=== PATIENT | female | born 1955 | race Caucasian/White ===

== ENCOUNTER 2017-04-09 03:42 | Emergency (ER) | payer BC ==
[2017-04-09] MEDS ORDERED: HYDR-971 PO (04:48)
[2017-04-09] MEDS ORDERED: KETOROLAC 15 MG/ML VIAL. IV ONE (05:00)
[2017-04-09] MEDS ORDERED: HYDROmorphone PF 1 MG/ML DISP.SYRIN IM ONE (05:00)
[2017-04-09 05:06] VITALS: BP 106/60
--- NOTE | 2017-04-09 05:09 | PHYS DOC ---
Past History Past Medical History: Alcoholism Past Surgical History: Appendectomy, Hysterectomy, Tonsillectomy Alcohol Use: Heavy Drug Use: None Adult General Chief Complaint Chief Complaint: LOWER EXT PAIN HPI HPI Patient is a 61-year-old female with history significant for osteoporosis, status post appendectomy and bilateral tubal ligation, presents to the ER today secondary to a fall earlier this evening. Patient reports that her dogs in the house that she tripped over the leash and she's been having pain to her left lower extremity around her catheter ever since. Patient denies any other injuries. Patient has any head trauma. Patient has a loss of consciousness. Patient has a nausea vomiting diarrhea cough cold Raynaud's. Patient reports she has been nonweightbearing secondary to pain since. Patient reports that she was drinking some alcohol prior to this occurring. Patient's ER workup is been significant for an x-ray that was obtained which revealed a comminuted midshaft fracture of her tibia. This was non-articular. Did not go through the tibial plateau. Did not involve the ankle. Patient's physical exam was significant for tenderness to palpation to her left calf. Patient soft tissue swelling. Patient has no pallor, pulselessness, paresthesias to her foot. Her Does not appear to be swollen tight. No suspicion for compartment syndrome. Patient has good pulses distally. DPPT pulses both intact and equal and bounding bilaterally. Assessment and plan 61-year-old female who presents to the ER today with what appears to be a comminuted fracture of her left mid shaft of her tibia. Patient has been placed in a posterior splint as well as a knee immobilizer for immobilization. I have spoken to Dr. Carrasco and he is assisted with reviewing the x-rays. He is in agreement with this plan. We have precautions patient regarding compartment syndrome and returning to the ER. Patient will follow-up with Dr. Carrasco. He is asked us to have her call in the morning and he will assist in getting her into see him as soon as possible. Patient has received Dilaudid, Toradol, Zofran in the ED with good analgesia. Patient be sent home with Lortab to assist her with her pain. Review of Systems Review of Systems Constitutional: Denies fever or chills [] Eyes: Denies change in visual acuity, redness, or eye pain [] HENT: Denies nasal congestion or sore throat [] All other review systems are negative except as.documented in the history of present illness Current Medications Current Medications Current Medications Medications (Trade) Dose Ordered Sig/Berna Start Time Stop Time Status Last Admin Dose Admin Hydromorphone HCl (Dilaudid) 0.5 mg 1X ONCE 04/09/17 05:00 04/09/17 05:01 Ketorolac Tromethamine (Toradol) 15 mg 1X ONCE 04/09/17 05:00 04/09/17 05:01 Allergies Allergies Allergies Coded Allergies Type Severity Reaction Last Updated Verified Penicillins Allergy Intermediate 04/09/17 Yes Sulfa (Sulfonamide Antibiotics) Allergy Intermediate 04/09/17 Yes acetaminophen Allergy Intermediate 04/09/17 Yes codeine Allergy Intermediate 04/09/17 Yes meperidine Allergy Intermediate 04/09/17 Yes propoxyphene Allergy Intermediate 04/09/17 Yes Physical Exam Physical Exam Constitutional: Well developed, well nourished, no acute distress, non-toxic appearance. HENT: Normocephalic, atraumatic, Eyes: EOMI, conjunctiva normal, no discharge. Neck: Normal range of motion, no tenderness, supple, no stridor. Cardiovascular:Heart rate regular rhythm, Lungs & Thorax: Bilateral breath sounds clear to auscultation Abdomen: Bowel sounds normal, soft, no tenderness, no masses, no pulsatile masses. Skin: Warm, dry, no erythema, no rash. Back: No tenderness, no CVA tenderness. Extremities: See above. Neurologic: Alert and oriented X 3, normal motor function, normal sensory function, no focal deficits noted. Psychologic: Affect normal, judgement normal, mood normal. EKG EKG [] Radiology/Procedures Radiology/Procedures [] Course & Med Decision Making Course & Med Decision Making Pertinent Labs and Imaging studies reviewed. (See chart for details) [] Dragon Disclaimer Dragon Disclaimer This chart was dictated in whole or in part using Voice Recognition software in a busy, high-work load, and often noisy Emergency Department environment. It may contain unintended and wholly unrecognized errors or omissions. Departure Departure: Impression: Primary Impression: Nondisplaced comminuted fracture of shaft of left tibia Disposition: HOME, SELF-CARE Condition: IMPROVED Referrals: PCP,JALEN (PCP) LILY CARRASCO MD Patient Instructions: Cast or Splint Care, Compartment Syndrome-Brief, Knee Immobilization, Tibial Fracture, Adult Additional Instructions: elevate your lower extremities whenever resting. Ice as much as possible. Scripts Hydrocodone Bit/Acetaminophen (NORCO 5-325 TABLET) 1 Each Tablet 1 TAB PO PRN Q6HRS Y for PAIN, #30 TAB 0 Refills Prov: RUTH GAITAN MD 04/09/17 Problem Qualifiers Primary Impression: Nondisplaced comminuted fracture of shaft of left tibia Encounter type: initial encounter Fracture type: closed Qualified Codes: S82.255A - Nondisplaced comminuted fracture of shaft of left tibia, initial encounter for closed fracture RUTH GAITAN MD Apr 09, 2017 05:09
--- NOTE | 2017-04-09 08:05 | RAD ---
Left tibia and fibula radiograph 04/09/2017 at 0401 hours Indication: Severe pain from fall Comparison: None available Technique: 4 views of the left tibia and fibula are provided. Findings: There is a comminuted fracture of the mid left tibial diaphysis with obliquely oriented fracture fragments in a spiral distribution. There is mild displacement. No significant angulation. No fracture is noted involving the fibula. No disruption of the knee or ankle joint. Impression: Comminuted spiral fracture of the proximal left tibial diaphysis with mild displacement and no significant angulation.
== END 2017-04-09 05:21 | disposition home or self-care (01) ==
LOC: ER 03:42
DX: S82.255A Nondisplaced comminuted fracture of shaft of left tibia, initial encounter for closed fracture (principal); R11.2 Nausea with vomiting, unspecified; R19.7 Diarrhea, unspecified; F10.20 Alcohol dependence, uncomplicated; Z88.0 Allergy status to penicillin; Z88.2 Allergy status to sulfonamides; Z88.6 Allergy status to analgesic agent; Z88.5 Allergy status to narcotic agent; Z88.8 Allergy status to other drugs, medicaments and biological substances; W18.09XA Striking against other object with subsequent fall, initial encounter; Y93.89 Activity, other specified; Y92.89 Other specified places as the place of occurrence of the external cause; Y99.8 Other external cause status
CPT/HCPCS: 29505; 73590; 96372; 96374; 99284; J1170; J1885

== ENCOUNTER → 2021-09-10 | Outpatient (CLI) | payer BC ==
[~2021-09-10] MED LIST: HYDR-3165 PO
[2021-09-10 14:36] LABS: BASO # 0.1 x10^3/uL (0.0-0.2); BASO % 1 % (0-3); EOS # 0.2 x10^3/uL (0.0-0.7); EOS % 3 % (0-3); HEMATOCRIT 34.3 % (36.0-47.0); HEMOGLOBIN 11.3 g/dL (12.0-15.5); LYMPH # 1.1 x10^3/uL (1.0-4.8); LYMPH % 16 % (24-48); MEAN CORPUSCULAR HEMOGLOBIN 30 pg (25-35); MEAN CORPUSCULAR HGB CONC 33 g/dL (31-37); MEAN CORPUSCULAR VOLUME 91 fL (79-100); MONO # 0.4 x10^3/uL (0.0-1.1); MONO % 6 % (0-9); NEUT # 5.3 x10^3uL (1.8-7.7); NEUT % 74 % (31-73); PLATELET COUNT 400 x10^3/uL (140-400); RED BLOOD COUNT 3.77 x10^6/uL (3.50-5.40); WHITE BLOOD COUNT 7.1 x10^3/uL (4.0-11.0)
[2021-09-10 14:47] LABS: C REACTIVE PROTEIN 8.2 mg/L (0-3.3); CREATININE 0.4 mg/dL (0.6-1.0); GFR 161.2
[2021-09-10 15:58] LABS: SEDIMENTATION RATE 23 (0-25)
== END ==
LOC: SPEC 13:35
PROVIDERS: ATTEND Internal Medicine Infectious Disease
DX: Z45.2 Encounter for adjustment and management of vascular access device (principal)
CPT/HCPCS: 36415; 82550; 82565; 84520; 85025; 85651; 86140

== ENCOUNTER → 2021-09-16 | Outpatient (CLI) | payer BC ==
[2021-09-16 11:02] LABS: C REACTIVE PROTEIN 3.4 mg/L (0-3.3); CREATININE 0.3 mg/dL (0.6-1.0); GFR 224.7
[2021-09-16 11:27] LABS: BASO # 0.1 x10^3/uL (0.0-0.2); BASO % 2 % (0-3); EOS # 0.1 x10^3/uL (0.0-0.7); EOS % 1 % (0-3); HEMATOCRIT 31.4 % (36.0-47.0); HEMOGLOBIN 10.2 g/dL (12.0-15.5); LYMPH % 16 % (24-48); MEAN CORPUSCULAR HEMOGLOBIN 30 pg (25-35); MEAN CORPUSCULAR HGB CONC 32 g/dL (31-37); MEAN CORPUSCULAR VOLUME 92 fL (79-100); MONO # 0.4 x10^3/uL (0.0-1.1); MONO % 6 % (0-9); NEUT # 4.5 x10^3uL (1.8-7.7); NEUT % 74 % (31-73); PLATELET COUNT 362 x10^3/uL (140-400); RED BLOOD COUNT 3.41 x10^6/uL (3.50-5.40); RED CELL DISTRIBUTION WIDTH 14.4 % (11.5-14.5); WHITE BLOOD COUNT 6.1 x10^3/uL (4.0-11.0)
[2021-09-16 12:47] LABS: SEDIMENTATION RATE 13 (0-25)
== END ==
LOC: SPEC 09:54
PROVIDERS: ATTEND Internal Medicine Infectious Disease
DX: Z45.2 Encounter for adjustment and management of vascular access device (principal)
CPT/HCPCS: 36415; 82550; 82565; 84520; 85025; 85651; 86140

== ENCOUNTER 2021-09-23 13:48 | Emergency (ER) | payer BC ==
[~2021-09-23] VITALS: Ht 170.2 cm; Wt 39.0 kg
[2021-09-23] MEDS ORDERED: IOHEXOL 350 MG/ML 100 ML VIAL. IV ONE (14:45)
[2021-09-23] MEDS ORDERED: IV NORMAL SALINE 1,000ML 1,000 ML IV SCH (14:45)
[2021-09-23] MEDS ORDERED: CONTRAST GIVEN. MC PRN (15:00)
[2021-09-23 15:15] LABS: BASO # 0.1 x10^3/uL (0.0-0.2); BASO % 1 % (0-3); EOS # 0.2 x10^3/uL (0.0-0.7); EOS % 2 % (0-3); HEMATOCRIT 35.4 % (36.0-47.0); HEMOGLOBIN 11.7 g/dL (12.0-15.5); LYMPH # 0.6 x10^3/uL (1.0-4.8); LYMPH % 6 % (24-48); MEAN CORPUSCULAR HEMOGLOBIN 30 pg (25-35); MEAN CORPUSCULAR HGB CONC 33 g/dL (31-37); MEAN CORPUSCULAR VOLUME 89 fL (79-100); MONO # 0.9 x10^3/uL (0.0-1.1); MONO % 8 % (0-9); NEUT # 8.7 x10^3uL (1.8-7.7); NEUT % 83 % (31-73); PLATELET COUNT 383 x10^3/uL (140-400); RED BLOOD COUNT 3.95 x10^6/uL (3.50-5.40); RED CELL DISTRIBUTION WIDTH 14.1 % (11.5-14.5); WHITE BLOOD COUNT 10.5 x10^3/uL (4.0-11.0)
[2021-09-23 15:28] LABS: CALCIUM 9.2 mg/dL (8.5-10.1); CREATININE 0.3 mg/dL (0.6-1.0); GFR 224.7
[2021-09-23 15:46] LABS: ALBUMIN 3.5 g/dL (3.4-5.0); ALBUMIN/GLOBULIN RATIO 0.9 (1.0-1.7); MAGNESIUM 1.8 mg/dL (1.8-2.4); TOTAL BILIRUBIN 0.3 mg/dL (0.2-1.0); TOTAL PROTEIN 7.2 g/dL (6.4-8.2)
--- NOTE | 2021-09-23 15:47 | PHYS DOC ---
Past History Past Medical History: Alcoholism, COPD Past Surgical History: Appendectomy, Hysterectomy, Tonsillectomy Smoking: Cigarettes, Less than 1pk/day Alcohol Use: Heavy Drug Use: None General Adult EDM: Chief Complaint: SHORTNESS OF BREATH HPI: HPI: 65-year-old female presents with report of dyspnea with exertion and low oxygen at home. Patient with history of home health nursing staff evaluating patient secondary to infected left elbow status post surgical treatment for which she is currently being evaluated and gets IV antibiotic therapy. Home health aide noted patient's O2 sats down into 80%'s and that her heart rate was in the 120s. Home health nurse advised patient to present to the ER for further evaluation. Patient denies any leg swelling or calf tenderness. Patient denies history of DVT/PE. Patient does have a history of COPD and reports she is a 1 pack-a-day smoker which is considerably down from her prior usage. Patient denies any fever or chills. Denies known trauma. Denies known exposure to COVID-19. Review of Systems: Review of Systems: Constitutional: Denies fever or chills Eyes: Denies redness or eye pain HENT: Denies nasal congestion or sore throat Respiratory: Denies cough; reports shortness of breath and dyspnea with exertion Cardiovascular: Denies chest pain; reports palpitations GI: Denies abdominal pain, nausea, or vomiting : Denies dysuria or hematuria Musculoskeletal: Denies back pain or joint pain Integument: Denies rash or skin lesions Neurologic: Denies headache, focal weakness or sensory changes Complete systems were reviewed and found to be within normal limits, except as documented in this note. Current Medications: Current Meds: Current Medications Medications (Trade) Dose Ordered Sig/Berna Start Time Stop Time Status Last Admin Dose Admin Info (Do NOT chart on this entry -- for MONITORING) 1 each PRN DAILY PRN 09/23/21 15:00 09/25/21 14:59 Iohexol (Omnipaque 350 Mg/ml) 100 ml 1X ONCE 09/23/21 14:45 09/23/21 14:47 DC 09/23/21 15:27 100 ML Sodium Chloride 1,000 ml @ 1,000 mls/hr Q1H 09/23/21 14:45 09/23/21 15:44 DC 09/23/21 15:37 1,000 MLS/HR Allergies: Allergies: Allergies Coded Allergies Type Severity Reaction Last Updated Verified Penicillins Allergy Intermediate 04/09/17 Yes Sulfa (Sulfonamide Antibiotics) Allergy Intermediate 04/09/17 Yes codeine Allergy Intermediate 04/09/17 Yes meperidine Allergy Intermediate 04/09/17 Yes propoxyphene Allergy Intermediate 04/09/17 Yes Physical Exam: PE: Constitutional: Well developed, thin, anxious, no acute distress, non-toxic appearance HENT: Normocephalic, atraumatic Eyes: PERRL, EOMI, conjunctiva normal, no discharge, no nystagmus Neck: Normal range of motion, no tenderness, supple Lungs & Thorax: No respiratory distress, lungs clear to auscultation bilaterally, no significant wheezing/Rales/rhonchi, equal chest rise and fall Cardiovascular: Tachycardia, normal heart sounds Abdomen: Soft, no tenderness Skin: Warm, dry, no erythema, no rash Extremities: No tenderness, ROM intact, no edema Neurologic: Alert and oriented X 3, normal motor function, normal sensory function, no focal deficits noted Psychologic: Affect anxious, judgment normal Current Patient Data: Labs: Laboratory Tests Test 09/23/21 14:58 White Blood Count 10.5 x10^3/uL (4.0-11.0) Red Blood Count 3.95 x10^6/uL (3.50-5.40) Hemoglobin 11.7 g/dL (12.0-15.5) L Hematocrit 35.4 % (36.0-47.0) L Mean Corpuscular Volume 89 fL (79-100) Mean Corpuscular Hemoglobin 30 pg (25-35) Mean Corpuscular Hemoglobin Concent 33 g/dL (31-37) Red Cell Distribution Width 14.1 % (11.5-14.5) Platelet Count 383 x10^3/uL (140-400) Neutrophils (%) (Auto) 83 % (31-73) H Lymphocytes (%) (Auto) 6 % (24-48) L Monocytes (%) (Auto) 8 % (0-9) Eosinophils (%) (Auto) 2 % (0-3) Basophils (%) (Auto) 1 % (0-3) Neutrophils # (Auto) 8.7 x10^3uL (1.8-7.7) H Lymphocytes # (Auto) 0.6 x10^3/uL (1.0-4.8) L Monocytes # (Auto) 0.9 x10^3/uL (0.0-1.1) Eosinophils # (Auto) 0.2 x10^3/uL (0.0-0.7) Basophils # (Auto) 0.1 x10^3/uL (0.0-0.2) Sodium Level 133 mmol/L (136-145) L Potassium Level 4.0 mmol/L (3.5-5.1) Chloride Level 94 mmol/L (98-107) L Carbon Dioxide Level 28 mmol/L (21-32) Anion Gap 11 (6-14) Blood Urea Nitrogen 5 mg/dL (7-20) L Creatinine 0.3 mg/dL (0.6-1.0) L Estimated GFR (Cockcroft-Gault) 224.7 BUN/Creatinine Ratio 17 (6-20) Glucose Level 101 mg/dL (70-99) H Lactic Acid Level 0.8 mmol/L (0.4-2.0) Calcium Level 9.2 mg/dL (8.5-10.1) Magnesium Level Pending Total Bilirubin Pending Aspartate Amino Transferase (AST) Pending Alanine Aminotransferase (ALT) Pending Alkaline Phosphatase Pending Creatine Kinase Pending Creatine Kinase MB (Mass) Pending Creatine Kinase MB Relative Index Pending Troponin I High Sensitivity 6 ng/L (4-50) ND-Mqh-F-Type Natriuretic Peptide Pending Total Protein Pending Albumin Pending Albumin/Globulin Ratio Pending Lipase Pending Vital Signs: Vital Signs Date Time Temp Pulse Resp B/P (MAP) Pulse Ox O2 Delivery O2 Flow Rate FiO2 09/23/21 14:42 98.2 122 20 169/110 (129) 93 EKG: EKG: @1436 Sinus tachycardia at 123bpm, NO ST elevation, QRS 70ms, QT/QTc 310/449ms Radiology/Procedures: Radiology/Procedures: PROCEDURE: CT ANGIOGRAPHY CHEST Study: CT CHEST WITH CONTRAST - PULMONARY ANGIOGRAM History: Dyspnea, hypoxia, tachycardia Comparison: None Technique: Helical CT of the chest performed after the administration of intravenous contrast and timed for angiographic evaluation of the pulmonary arteries per PE protocol. Coronal and sagittal 3D MIP reformations were obtained. One or more of the following individualized dose reduction techniques were utilized for this examination: 1. Automated exposure control 2. Adjustment of the mA and/or kV according to patient size 3. Use of iterative reconstruction technique. Findings: Pulmonary Arteries: Contrast bolus is adequate. There is no acute pulmonary embolism. Heart/Systemic Vasculature: The heart is normal in size. No pericardial effusion. The thoracic aorta is normal in caliber. Mediastinum: No mediastinal or hilar lymphadenopathy. Lungs: There is moderate centrilobular emphysema. Mild pleural-parenchymal scarring at the lung apices. Mild airway wall thickening. Mild scattered mucous plugging in the right lower lobe airways. Mild thickening along the left major fissure, nonspecific. No pleural effusion. Neck/Axilla/Body Wall: No axillary lymphadenopathy. The visualized portion of the thyroid gland is normal Upper Abdomen: Unremarkable. Bones: There is no acute osseous abnormality. IMPRESSION: 1. No acute pulmonary embolism. 2. Moderate emphysema. 3. Mild scattered mucous plugging in the right lower lobe airways. Electronically signed by: Marcelina Plascencia MD (09/23/2021 3:50 PM) [id number] Heart Score: C/O Chest Pain: N/A Course & Med Decision Making: Course & Med Decision Making Pertinent Labs and Imaging studies reviewed. (See chart for details) Patient presents with report of dyspnea with exertion and low O2 at home. Patient also noted to have elevated heart rate. Patient requiring supplemental oxygen administration upon arrival as patient's O2 sat down to 89% on room air. Improved with supplemental O2. EKG notes sinus tachycardia. Labs obtained and posted to chart. CTA chest obtained without signs of acute PE. Signs of br onchitis appreciated. Empiric steroid initiated. Patient continued to be tachycardic and hypoxic requiring supplemental O2. Pat ient requiring admission for further evaluation and treatment. Rapid influenza and COVID-19 negative. Cannot fully exclude COVID-19. COVID-19 PCR pending. Patient reports she does not want to be admitted and elects to be discharged home AGAINST MEDICAL ADVICE. Patient advised risks of leaving AGAINST MEDICAL ADVICE including permanent disability and or . Patient and spouse ac knowledge understanding and are in agreement with acceptance of these risks. COVID-19 CRITERIA: The patient was evaluated during the global COVID-19 pandemic, and that diagnosis was suspected/considered upon their initial presentation. Their evaluation, treatment and testing was consistent with current guidelines for patients who present with complaints or symptoms that may be related to COVID-19. Ava Disclaimer: Ava Disclaimer: This electronic medical record was generated, in whole or in part, using a voice recognition dictation system. Departure Departure: Impression: Primary Impression: Tachycardia Additional Impressions: Hypoxia Left against medical advice Disposition: 07 LEFT AGAINST MEDICAL ADVICE Condition: GUARDED Referrals: KEVIN GUTIERREZ MD (PCP) Patient Instructions: Chronic Obstructive Pulmonary Disease Exacerbation, [id number], Discharge Against Medical Advice, Nonspecific Tachycardia Additional Instructions: You have elected to leave AGAINST MEDICAL ADVICE. As such you are taking upon you the risks of doing so including permanent disability and or . COVID-19 Assessment COVID-19 Patient Risks: Age 65 or older: No Sign of co-morbidity: Yes Exp to person + for COVID: No Exp to PUI: No Travel from affected area: No Lower respiratory symptoms: Yes Fever: No Other: Yes PPE Use: Full PPE with N95 mask or PAPR: Yes Critical Care Time Critical care time was 30 minutes which includes time at bedside, spent in discussion of patient's care with specialists and/or family members, with int erpretation of laboratory and/or radiological studies and is exclusive of procedures. ELIEZER FU DO Sep 23, 2021 15:47
[2021-09-23 15:50] LABS: INFLUENZA A PATIENT NEGATIVE (NEGATIVE); INFLUENZA B PATIENT NEGATIVE (NEGATIVE)
--- NOTE | 2021-09-23 15:52 | RAD ---
Study: CT CHEST WITH CONTRAST - PULMONARY ANGIOGRAM History: Dyspnea, hypoxia, tachycardia Comparison: None Technique: Helical CT of the chest performed after the administration of intravenous contrast and ti med for angiographic evaluation of the pulmonary arteries per PE protocol. Coronal and sagittal 3D OR P reformations were obtained. One or more of the following individualized dose reduction techniques were utilized for this examinat ion: 1. Automated exposure control 2. Adjustment of the mA and/or kV according to patient size 3. Use of iterative reconstruction technique. Findings: Pulmonary Arteries: Contrast bolus is adequate. There is no acute pulmonary embolism. Heart/Systemic Vasculature: The heart is normal in size. No pericardial effusion. The thoracic aorta is normal in caliber. Mediastinum: No mediastinal or hilar lymphadenopathy. Lungs: There is moderate centrilobular emphysema. Mild pleural-parenchymal scarring at the lung apice s. Mild airway wall thickening. Mild scattered mucous plugging in the right lower lobe airways. Mild thickening along the left major fissure, nonspecific. No pleural effusion. Neck/Axilla/Body Wall: No axillary lymphadenopathy. The visualized portion of the thyroid gland is no rmal Upper Abdomen: Unremarkable. Bones: There is no acute osseous abnormality. IMPRESSION: 1. No acute pulmonary embolism. 2. Moderate emphysema. 3. Mild scattered mucous plugging in the right lower lobe airways. Electronically signed by: Marcelina Plascencia MD (09/23/2021 3:50 PM) [id number]
[2021-09-23 16:30] VITALS: BP 156/90
[2021-09-23 17:03] LABS: BACTERIA,URINE 0 /HPF (0-FEW); BILIRUBIN,URINE NEG (NEG); CLARITY,URINE CLEAR; COLOR,URINE YELLOW; GLUCOSE,URINE NEG (NEG); NITRITE,URINE NEG (NEG); RBC,URINE OCC /HPF (0-2); UROBILINOGEN,URINE 0.2 mg/dL (0.2 mg/dL); WBC,URINE 0 /HPF (0-4)
--- NOTE | 2021-09-23 20:44 | EKG ---
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
== END 2021-09-23 17:05 | disposition left against medical advice (07) ==
LOC: ER 13:48
DX: R00.0 Tachycardia, unspecified (principal); R09.02 Hypoxemia; J44.9 Chronic obstructive pulmonary disease, unspecified; F10.20 Alcohol dependence, uncomplicated; F17.210 Nicotine dependence, cigarettes, uncomplicated; Z20.822 Contact with and (suspected) exposure to COVID-19; Z88.0 Allergy status to penicillin; Z88.2 Allergy status to sulfonamides; Z88.5 Allergy status to narcotic agent; Z88.8 Allergy status to other drugs, medicaments and biological substances; Y90.9 Presence of alcohol in blood, level not specified
CPT/HCPCS: 71275; 80053; 81001; 82553; 83605; 83690; 83735; 83880; 84484; 85025; 87040; 87428; 93005; 96360; 99285; C9803; J7030; Q9967; U0003

== ENCOUNTER → 2021-09-24 | Outpatient (CLI) | payer BC ==
[2021-09-23 16:30] VITALS: BP 156/90
[2021-09-24 10:01] LABS: C REACTIVE PROTEIN 103.6 mg/L (0-3.3); CREATININE 0.3 mg/dL (0.6-1.0); GFR 224.7
[2021-09-24 10:16] LABS: BASO # 0.1 x10^3/uL (0.0-0.2); BASO % 1 % (0-3); EOS # 0.3 x10^3/uL (0.0-0.7); EOS % 3 % (0-3); HEMATOCRIT 31.9 % (36.0-47.0); HEMOGLOBIN 10.6 g/dL (12.0-15.5); LYMPH # 0.6 x10^3/uL (1.0-4.8); LYMPH % 7 % (24-48); MEAN CORPUSCULAR HEMOGLOBIN 30 pg (25-35); MEAN CORPUSCULAR HGB CONC 33 g/dL (31-37); MEAN CORPUSCULAR VOLUME 89 fL (79-100); MONO # 0.6 x10^3/uL (0.0-1.1); MONO % 7 % (0-9); NEUT # 7.3 x10^3uL (1.8-7.7); NEUT % 83 % (31-73); PLATELET COUNT 392 x10^3/uL (140-400); RED CELL DISTRIBUTION WIDTH 14.1 % (11.5-14.5); WHITE BLOOD COUNT 8.8 x10^3/uL (4.0-11.0)
[2021-09-24 11:34] LABS: SEDIMENTATION RATE 33 (0-25)
== END ==
LOC: SPEC 08:16
PROVIDERS: ATTEND Internal Medicine Infectious Disease
DX: Z45.2 Encounter for adjustment and management of vascular access device (principal)
CPT/HCPCS: 36415; 82550; 82565; 84520; 85025; 85651; 86140

== ENCOUNTER → 2021-10-01 | Outpatient (CLI) | payer BC ==
[2021-09-23 16:30] VITALS: BP 156/90
[2021-10-01 08:57] LABS: BASO # 0.1 x10^3/uL (0.0-0.2); BASO % 1 % (0-3); EOS # 0.3 x10^3/uL (0.0-0.7); EOS % 3 % (0-3); HEMATOCRIT 36.4 % (36.0-47.0); HEMOGLOBIN 11.8 g/dL (12.0-15.5); LYMPH # 0.8 x10^3/uL (1.0-4.8); LYMPH % 7 % (24-48); MEAN CORPUSCULAR HEMOGLOBIN 28 pg (25-35); MEAN CORPUSCULAR HGB CONC 33 g/dL (31-37); MEAN CORPUSCULAR VOLUME 87 fL (79-100); MONO # 0.7 x10^3/uL (0.0-1.1); MONO % 7 % (0-9); NEUT # 8.7 x10^3uL (1.8-7.7); NEUT % 83 % (31-73); PLATELET COUNT 465 x10^3/uL (140-400); RED BLOOD COUNT 4.18 x10^6/uL (3.50-5.40); RED CELL DISTRIBUTION WIDTH 14.7 % (11.5-14.5); WHITE BLOOD COUNT 10.5 x10^3/uL (4.0-11.0)
[2021-10-01 09:30] LABS: CREATININE 0.3 mg/dL (0.6-1.0)
[2021-10-01 10:04] LABS: SEDIMENTATION RATE 25 (0-25)
== END ==
LOC: SPEC 08:27
PROVIDERS: ATTEND Internal Medicine Infectious Disease
DX: Z45.2 Encounter for adjustment and management of vascular access device (principal)
CPT/HCPCS: 36415; 82550; 82565; 84520; 85025; 85651; 86140

== ENCOUNTER → 2021-10-07 | Outpatient (CLI) | payer BC ==
[2021-09-23 16:30] VITALS: BP 156/90
[2021-10-07 08:50] LABS: BASO # 0.1 x10^3/uL (0.0-0.2); BASO % 1 % (0-3); EOS # 0.2 x10^3/uL (0.0-0.7); EOS % 2 % (0-3); HEMATOCRIT 35.9 % (36.0-47.0); HEMOGLOBIN 11.6 g/dL (12.0-15.5); LYMPH # 0.6 x10^3/uL (1.0-4.8); LYMPH % 5 % (24-48); MEAN CORPUSCULAR HEMOGLOBIN 28 pg (25-35); MEAN CORPUSCULAR HGB CONC 32 g/dL (31-37); MEAN CORPUSCULAR VOLUME 87 fL (79-100); MONO # 0.7 x10^3/uL (0.0-1.1); MONO % 6 % (0-9); NEUT # 11.1 x10^3uL (1.8-7.7); NEUT % 87 % (31-73); PLATELET COUNT 438 x10^3/uL (140-400); RED BLOOD COUNT 4.12 x10^6/uL (3.50-5.40); RED CELL DISTRIBUTION WIDTH 14.9 % (11.5-14.5); WHITE BLOOD COUNT 12.7 x10^3/uL (4.0-11.0)
[2021-10-07 09:30] LABS: CREATININE 0.3 mg/dL (0.6-1.0)
[2021-10-07 10:07] LABS: SEDIMENTATION RATE 25 (0-25)
== END ==
LOC: SPEC 08:24
PROVIDERS: ATTEND Internal Medicine Infectious Disease
DX: Z45.2 Encounter for adjustment and management of vascular access device (principal)
CPT/HCPCS: 36415; 82550; 82565; 84520; 85025; 85651; 86140